=== PATIENT | female | born 1940 | race Caucasian/White ===

== ENCOUNTER 2017-02-27 05:52 | Inpatient (IN) ==
[2017-02-21 11:56] LABS: Basophils # (Auto) 0 K/mcL (0.0-0.3); Basophils % (Auto) 0.5 % (0.0-2.0); Eosinophils # (Auto) 0.2 K/mcL (0.0-0.7); Eosinophils % (Auto) 3.9 % (0.0-7.0); Granulocytes % (Auto) 53.1 % (38.0-78.0); Lymphocytes # (Auto) 1.6 K/mcL (1.5-4.8); Lymphocytes % (Auto) 34.8 % (15.5-49.0); Mean Corpuscular HGB Conc 33.9 g/dL (31.0-36.0); Mean Corpuscular Hemoglobin 31.9 pg (26.0-34.0); Monocytes # (Auto) 0.4 K/mcL (0.1-0.9); Monocytes % (Auto) 7.7 % (1.0-12.0); Platelet Count 221 K/mcL (140-440); RBC 4.54 M/mcL (4.00-5.20); Red Cell Distribution Width 13.4 % (11.5-14.5)
[2017-02-21 12:05] LABS: Blood Urea Nitrogen 16 mg/dl (8-23)
[2017-02-21 12:10] LABS: Appearance,Urine CLEAR; Bilirubin,Urine NEG (NEG); Color,Urine STRAW; Glucose,Urine (UA) NEGATIVE (NEG); Leukocyte Esterase,Urine NEG /uL (NEG); Nitrate,Urine NEG (NEG); Protein,Urine NEG (NEG); Specific Gravity,Urine 1.008 (1.000-1.035); Urine Blood NEG mg/dL (<0.03); Urobilinogen,Urine NEG (NEG)
[2017-02-27] MEDS ORDERED: CELECOXIB 200 MG CAPSULE PO SCH (06:00)
[2017-02-27] MEDS ORDERED: ceFAZolin 1 GM VIAL IV SCH (06:00)
[2017-02-27] MEDS ORDERED: oxyCODONE 10 MG TAB.ER.12H PO SCH (06:00)
[2017-02-27] MEDS ORDERED: PREGABALIN 75 MG CAPSULE PO SCH (06:00)
[2017-02-27] MEDS ORDERED: GLYCOPYRROLATE 0.2 MG/ML VIAL IV ONE (07:45)
[2017-02-27] MEDS ORDERED: LIDOCAINE HCL/PF 100 MG/5 ML SYRINGE IV ONE (07:45)
[2017-02-27] MEDS ORDERED: TRANEXAMIC ACID 1,000 MG/10 ML VIAL IV ONE (07:45)
[2017-02-27] MEDS ORDERED: ONDANSETRON 4 MG/2 ML VIAL IV ONE (07:45)
[2017-02-27] MEDS ORDERED: ePHEDrine 50 MG/ML AMPUL IV ONE (07:45)
[2017-02-27] MEDS ORDERED: MIDAZOLAM 5 MG/5 ML VIAL IV ONE (07:45)
[2017-02-27] MEDS ORDERED: PROPOFOL 200 MG/20 ML VIAL IV ONE (07:45)
[2017-02-27] MEDS ORDERED: ROPIVACAINE HCL/PF 20 ML VIAL IJ ONE (07:45)
[2017-02-27] MEDS ORDERED: DEXAMETHASONE 10 MG/ML VIAL IV ONE (07:45)
[2017-02-27] MEDS ORDERED: KETOROLAC 30 MG, ROPIVACAINE HCL/PF 49.5 ML, EPINEPHrine 0.5 MG, 0.9 % SODIUM CHLORIDE ... IJ ONE (08:00)
[2017-02-27] MEDS ORDERED: NALOXONE HCL 0.4 MG/ML VIAL IV PRN (09:18)
[2017-02-27] MEDS ORDERED: ONDANSETRON 4 MG/2 ML VIAL IV PRN ×2 (09:18→09:44)
[2017-02-27] MEDS ORDERED: MEPERIDINE 25 MG/ML SYRINGE IV PRN (09:18)
[2017-02-27] MEDS ORDERED: LACTATED RINGERS 250 ML IV PRN (09:18)
[2017-02-27] MEDS ORDERED: diphenhydrAMINE 50 MG/ML VIAL IV PRN (09:18)
[2017-02-27] MEDS ORDERED: BENZOCAINE/MENTHOL 1 LOZENGE PO PRN ×2 (09:18→09:44)
[2017-02-27] MEDS ORDERED: IPRATROPIUM/ALBUTEROL 3 ML AMPUL.NEB NEB PRN (09:18)
[2017-02-27] MEDS ORDERED: FLUMAZENIL 0.1 MG/ML ML IV PRN (09:18)
[2017-02-27] MEDS ORDERED: HYDROmorphone 2 MG/ML SYRINGE IV PRN ×2 (09:18→09:44)
[2017-02-27] MEDS ORDERED: METHOCARBAMOL 1,000 MG/10 ML VIAL IV PRN (09:18)
[2017-02-27] MEDS ORDERED: LACTATED RINGERS 1,000 ML IV SCH (09:30)
[2017-02-27] MEDS ORDERED: BISACODYL 10 MG SUPP.RECT PR PRN (09:44)
[2017-02-27] MEDS ORDERED: POLYETHYLENE GLYCOL 3350 17 GM PACKET PO PRN (09:44)
[2017-02-27] MEDS ORDERED: TRANEXAMIC ACID 1,000 MG/10 ML VIAL IV SCH (09:44)
[2017-02-27] MEDS ORDERED: MAGNESIUM HYDROXIDE 30 ML ORAL.SUSP PO PRN (09:44)
[2017-02-27] MEDS ORDERED: FLEETS ADULT ENEMA PR PRN (09:44)
--- NOTE | 2017-02-27 09:44 | Brief Operative Note ---
Date of procedure: 02/27/17 Pre-op diagnosis: Left knee bicompartmental arthrosis Post-op diagnosis: other (Left knee tricompartmental arthrosis) Procedure: Left robotic assisted total knee arthroplasty Grafts/Implants: Yes (Solo 5 CR femur, 4 tibia, 33 patella, 9mm insert) Anesthesia: spinal, GLMA Findings: tricompartmental arthritis Complications: none Surgeon: David Sanchez Loss Claim Clerk: Eric George Estimated blood loss (cc): 30 Specimens Removed/Pathology: none sent Condition: stable Disposition: PACU
[2017-02-27] MEDS ORDERED: KETOCONAZOLE 2% TOP CRM 15GM TUBE TOPICAL PRN (09:50)
[2017-02-27] MEDS: fentaNYL 100 MCG/2 ML VIAL IV PRN ×2 (10:37→10:42)
[2017-02-27] MEDS: 0.9 % SODIUM CHLORIDE 1,000 ML IV SCH ×2 (11:15→20:00)
[2017-02-27] MEDS: FLUOCINONIDE 0.05% TOPICAL SCH ×2 (11:15→20:56)
[2017-02-27] MEDS: KETOROLAC 15 MG/ML VIAL IV SCH ×3 (11:54→23:23)
[2017-02-27] MEDS: 0.9 % SODIUM CHLORIDE 10 ML SYRINGE IV SCH (12:10)
[2017-02-27] MEDS: oxyCODONE/APAP 5/325MG TABLET PO PRN ×2 (12:31→16:17)
--- NOTE | 2017-02-27 14:04 | XRay Report ---
CLINICAL INFORMATION: Post-op total knee COMPARISON: None. FINDINGS: Total knee prostheses is anatomically aligned. No osseous abnormality. Soft tissue swelling seen as expected IMPRESSION: Negative Interpreted and Authenticated by: Jay Guerin 02/27/17
[2017-02-27] MEDS: ceFAZolin 1 GM VIAL IV SCH ×2 (15:35→23:23)
[2017-02-27] MEDS: ASPIRIN 325 MG ENTERIC COATED TABLET PO SCH (20:54)
[2017-02-27] MEDS: DOCUSATE SODIUM 100 MG CAPSULE PO SCH (20:55)
[2017-02-27] MEDS ORDERED: amLODIPine 5 MG TABLET PO SCH (21:00)
[2017-02-27] MEDS ORDERED: SENNOSIDES 1 TABLET PO SCH (21:00)
[2017-02-28] MEDS: 0.9 % SODIUM CHLORIDE 10 ML SYRINGE IV SCH ×2 (00:42→06:09)
[2017-02-28] MEDS: KETOROLAC 15 MG/ML VIAL IV SCH (06:08)
[2017-02-28] MEDS: oxyCODONE/APAP 5/325MG TABLET PO PRN ×2 (06:11→11:12)
[2017-02-28] MEDS ORDERED: OMEPRAZOLE 20 MG CAPSULE PO SCH (07:30)
--- NOTE | 2017-02-28 07:49 | Discharge Summary ---
Providers - Providers Patient information: Note initiated : 02/28/17 at 7:48 am Service Date, if different from initiated Date: [] Patient: Marissa Dixon 76 y/o F admitted on 02/27/17 for Left Uni Medial David Knee versus Total Knee . Chief Complaint: [] Discharge date: 02/28/17 Hospitalization Hospital course: Pt was admitted for a TKA. She underwent the procedure on the day of admission. She was transfered to the floor for IV pain meds, IV abx, and PT. She was discharged on post-op day #1. Give ASA for DVT prophylaxis, appropriate pain meds, and PT rx. Discharge diagnosis: L knee osetoarthrosis Exam - Exam Clean and dry: Yes Weight bearing status: as tolerated Ortho Discharge - TKA - Patient Instructions Diet: Regular Diet Activity: activity as tolerated Total Knee Protocol: For Total Knee: Start ROM YAHIR with stationary bike or rocking chair. Work on gaining full extension of knee. Posterior dislocation precautions provided. Hip abductor strengthening and gait training instructions provided. Apply Cryocuff as instructed. Dressing Care: May shower in 2 days Patient Education: Total Knee Replacement (DC), Total Knee Replacement, Camera Repairman (GEN) Additional Instructions: Discharge Instructions: Resume home diet as tolerated Follow up with [facility] on 03/11 at 9:20 am Do the exercises at home that physical therapy gave you. Take your prescription, photo ID, insurance cards, and current medication list with you to your first physical therapy appointment. Take your prescription to orange picker any medication or equipment (such as walker, crutches, toilet riser or C.P.M.) Wear comfortable clothing for your physical therapy. Weight bearing as tolerated. If you have the Aquacel Ag dressing, leave in place for 7 days then remove. If dressing becomes soiled (turns black), remove and use gauze 4x4 dressing and silvasorb ointment and change daily. Keep incision clean and dry. If you have Dermabond (a dressing with a mesh-like appearance), leave open to air. You may start showering on post op day #2. The Dermabond dressing can get wet, do not scrub dressing. Pat dry. To avoid constipation while taking any narcotic pain medication, take an over the counter stool softener/laxative. Use your Cryocuff or ice packs as directed, on for 20 minutes at a time throughout the day. This and elevation will help with pain and swelling. Your prescriptions are with your discharge information. Some medications were electronically transmitted to your pharmacy of choice. Return to ER for fever, chills, nausea and/or vomiting, unable to go to the bathroom, uncontrolled pain, redness, bleeding, swelling, dizziness, shortness of breath - Follow Up Plan Follow Up Appointments: David Sanchez MD [Physician] - 03/11/17 9:20 am Disposition: Home, Self-Care Prognosis: Good Rehab Potential: Good Overall status at discharge: patient is progressing back to baseline - Orders For Discharge Prescriptions: Aspirin/Calcium Carbonate/Mag [Aspirin Buffered 325 mg Tab] 325 mg PO BID #30 tablet HYDROcodone/APAP 10/325MG [Tulia 10/325Mg] 1 - 2 tab PO Q4H PRN #90 tablet PRN Reason: Pain Walker [Ultra-Light Rollator] 1 each MC DAILY #1 each Pending Studies Resuscitation Status Full Code Diet Regular Diet Start SatFeb 27 Lunch Amlodipine Besylate (Norvasc) 5 mg PO HS JOHN Last Admin: 02/27/17 20:54 Dose: 5 mg Aspirin (Ecotrin) 325 mg PO BID JOHN Last Admin: 02/27/17 20:54 Dose: 325 mg Docusate Sodium (Colace) 100 mg PO BID JOHN Last Admin: 02/27/17 20:55 Dose: 100 mg Ketorolac Tromethamine (Toradol) 15 mg IV Q6H JOHN Stop: 03/01/17 11:59 Last Admin: 02/28/17 06:08 Dose: 15 mg Admin: 02/27/17 23:23 Dose: 15 mg Admin: 02/27/17 18:00 Dose: 15 mg Admin: 02/27/17 11:54 Dose: 15 mg Omeprazole (Prilosec) 20 mg PO ACB JOHN Last Admin: 02/28/17 07:31 Dose: 20 mg Oxycodone/Acetaminophen (Percocet 5-325 Mg) 0 tab PO Q4HP PRN PRN Reason: Pain Last Admin: 02/28/17 06:11 Dose: 1 tab Admin: 02/27/17 16:17 Dose: 1 tab Admin: 02/27/17 12:31 Dose: 1 tab Fluocinonide 0.05% (Topical Cream) 1 dose TOPICAL BID [facility] Last Admin: 02/27/17 20:56 Dose: Not Given Admin: 02/27/17 11:15 Dose: Not Given Senna (Senokot) 2 tab PO HS [facility] Last Admin: 02/27/17 20:55 Dose: 2 tab Sodium Chloride (Saline Flush) 10 ml IV Q8 [facility] Last Admin: 02/28/17 06:09 Dose: 10 ml Admin: 02/28/17 00:42 Dose: Not Given Admin: 02/27/17 12:10 Dose: Not Given Throat Lozenges (Cepacol) 1 lozenge PO PRN PRN PRN Reason: Sore Throat Last Admin: 02/28/17 07:31 Dose: 1 lozenge Shift Summary 02/28/17 04:42 Shift Summary by Miya Rosas Slept most of the night. Up to BR w/1 assist & FWW. Ambulated halls. Moves very well. She states the plan is that she is going home today. Has had no pain meds ; states she has no pain. Initialized on 02/28/17 04:42 - END OF NOTE
[2017-02-28] MEDS: DOCUSATE SODIUM 100 MG CAPSULE PO SCH (08:37)
[2017-02-28] MEDS: ASPIRIN 325 MG ENTERIC COATED TABLET PO SCH (08:37)
[2017-02-28] MEDS: FLUOCINONIDE 0.05% TOPICAL SCH (08:42)
[2017-02-28] MEDS ORDERED: FISH OIL 1,000 MG CAPSULE PO SCH (09:00)
[2017-02-28] MEDS ORDERED: OLMESARTAN MEDOXOMIL 20 MG TABLET PO SCH (09:00)
[2017-02-28] MEDS ORDERED: ASCORBIC ACID 500 MG TABLET PO SCH (09:00)
[2017-02-28] MEDS ORDERED: MULTIVIT,THER IRON,CA,FA & MIN 1 TABLET PO SCH (09:00)
[2017-02-28] MEDS ORDERED: HYDROCHLOROTHIAZIDE 25 MG TABLET PO SCH (09:00)
--- NOTE | 2017-03-01 14:55 | Operative Note ---
DATE OF OPERATION: 02/27/2017 PREOPERATIVE DIAGNOSIS: Left knee bicompartmental osteoarthritis. POSTOPERATIVE DIAGNOSIS: Left knee tricompartmental osteoarthritis. PROCEDURE PERFORMED: Left robotic-assisted total knee arthroplasty placing a Dot size 5 cruciate retaining triathlon femoral component, size 4 tibial baseplate, a 33 mm patellar button and a 9 mm X3 tibial insert. SURGEON: David Sanchez MD. ELECTRIC WELDER HELPER: Dax George PA-C. ANESTHESIA: Spinal plus LMA. DRAINS: None. SPECIMENS: Bone cuts, which were discarded. BLOOD LOSS: Minimal. COMPLICATIONS: None. POSTOPERATIVE CONDITION: Stable. INDICATIONS FOR SURGERY: This is a 76-year-old female who had progressive worsening knee pain. Radiographs showed [id number] medial compartment arthritis as well as some spurring off the patellofemoral joint. FINDINGS AT SURGERY: She did have full-thickness cartilage loss off all three compartments. Post implantation showed good overall limb alignment, patellar tracking, and stability. PROCEDURE IN DETAIL: The patient had been seen preoperatively. Informed consent had been obtained after discussion of risks and benefits of surgery. Risks including, but not limited to, bleeding, possibly requiring transfusion; infection, possibly requiring implant removal and prolonged IV antibiotics; injury to nerves, blood vessels, and other surrounding structures; anesthetic risks; incomplete or no resolution of symptoms; stiffness, pain; instability, weakness, possibility of needing further surgery and DVT and pulmonary embolus risks. She understood these risks and wished to proceed. Correct operative site was marked and then patient received spinal anesthesia, was taken to the operating room and LMA general given. Left lower extremity was then carefully prepped and draped in normal sterile fashion and a time-out was performed verifying patient name, operative site, and plan. Esmarch was used to exsanguinate the extremity and tourniquet was inflated. A midline incision was made with a scalpel through skin and subcutaneous tissue. Hemostasis obtained with Bovie cautery. IrriSept was irrigated and then a medial parapatellar arthrotomy made. Subperiosteal exposure was done of the anterior medial tibia and this was continued around releasing the deep fibers of the MCL. The anterior horn of the medial meniscus was removed as there was a tear. We then inspected the joint and there was a full thickness trochlear groove defect with spurring and then there was also an area of near full-thickness cartilage loss off the lateral femoral condyle. Based on these findings we felt a total knee arthroplasty was best, so we went ahead and placed our pins two in the femur and two in the tibia after making stab incisions. We then placed our checkpoints on the femur and tibia and the distal anterior cortex of the femur was exposed and the ACL was transected. We checked our hip center of rotation as well as medial and lateral malleoli with the green probe and then check points were double checked on the femur and tibia. We then used the blue probe to do our data inputs and then after this was completed osteophytes were removed. We then did our surgical planning on the computer after checking our flexion and extension gaps. She was quite varus. We ended up with 2 degrees of varus on the tibia and I believe 2 on the femur as well to get ligament balance. We did try to release the MCL even more but this did not make up for the gap. Once we liked our flexion and extension gaps, we then started our bone prep after registering the robot. After the cuts were made, trial implants were placed. We took the knee through range of motion and it was very stable. The patella was freehand cut and a 33 patellar medialized maximally. Holes were drilled. The patella tracked nicely, so we went ahead and removed trial implants. Definitive implants were opened. We irrigated the joint with IrriSept. After a minute we pulse lavaged copiously with saline. CO2 gun was used to clean the cancellous bone surfaces and the antibiotic Palacos cement was used to cement the tibia followed by the femur. Excess cement removed and 9 insert trial placed. Patellar button was cemented while the knee was held in full extension. We filled the joint with IrriSept and then we injected pain cocktail in the pericapsular and subcutaneous tissues. The knee was held still until the cement had fully hardened. We flexed the knee up and removed any residual cement. We removed the trial insert and opened the definitive 9 insert. We injected the posterior medial and posterolateral capsule with pain cocktail and then irrigated IrriSept and then impacted the definitive insert. After a minute, we pulse lavaged copiously with saline. The knee was taken into about 45 degrees flexion. A #2 FiberWire was used in [id number] on the superior quadrant of the patella #1 Vicryl [id number] on an inferior quadrant, running #1 Vicryl for patellar tendon and quad tendon. Final IrriSept irrigation was done, after a minute pulse lavage and then 2-0 Monocryl for subcutaneous and david for skin. We did remove the checkpoints prior to closure. The pins were also removed and david were used for the skin and then the stab incisions for the pin sites. The patient was awakened, extubated, and transferred to recovery in stable condition. [id number] Job ID: [id number] Doc ID: [id number] David Sanchez MD
== END 2017-02-28 13:10 | disposition home or self-care (01) | DRG 470 ==
LOC: SUR 05:52 → MEDSUR 11:11
PROVIDERS: ADMIT Orthopaedic Surgery; ATTEND Orthopaedic Surgery